=== PATIENT | female | born 1985 | race Two or more races ===

== ENCOUNTER 2018-04-15 16:56 | Emergency (ER) | payer MEDICAID ==
[~2018-04-15] VITALS: Ht 165.1 cm; Wt 60.3 kg
[2018-04-15] MEDS ORDERED: METHIMAZOLE5 MG PO (17:07)
[2018-04-15] MEDS ORDERED: Ketorolac 30mg Inj IV ONE (17:15)
[2018-04-15] MEDS ORDERED: cefTRIAXone 1 GM in NS 55 ML IVPB ONE (17:15)
[2018-04-15] MEDS ORDERED: Lidocaine 2% Visc 15ml soln ORAL ONE (17:15)
[2018-04-15] MEDS ORDERED: Dexamethasone 4mg/ml vial IVP ONE (17:15)
--- NOTE | 2018-04-15 17:24 | Emergency Room Report ---
History of Present Illness General Chief Complaint: Sore Throat Present Illness HPI 32year-old female patient presents ER complaining of sore throat for the past 2 days. Reports that she she saw her primary care doctor yesterday and was diagnosed with strep throat and prescribed azithromycin. Reports began taking medication however pain has intensified today. Reports fever to 100.4 during that time, afebrile currently. Denies cough. Denies chest pain, vomiting, shortness of breath. Allergies: Coded Allergies: No Known Allergies (Unverified , 04/15/18) Patient History Past Medical History: see triage record Last Menstrual Period: 03/31/18 Reviewed Nursing Documentation: PMH: Agreed; PSxH: Agreed Nursing Documentation-PMH Hx Cardiac Problems: No - hyperthyroidism Review of Systems All Other Systems: negative except mentioned in HPI Physical Exam Vital Signs Date Time Temp Pulse Resp B/P (MAP) Pulse Ox O2 Delivery O2 Flow Rate FiO2 04/15/18 17:03 99.5 92 18 119/74 96 Room Air 99.5 Sp02 EP Interpretation: reviewed, normal General Appearance: well appearing, no apparent distress, alert, GCS 15, non- toxic Head: normocephalic, atraumatic Eyes: bilateral eye normal inspection, bilateral eye PERRL ENT: hearing grossly normal, normal pharynx, no angioedema, normal voice, TMs + canals normal, uvula midline, moist mucus membranes, tonsillar swelling, pharyngeal erythema, tonsillar exudate - right tonsil, other - uvula midline, erythematous and swollen, no hot potato voice Neck: full range of motion Respiratory: lungs clear, normal breath sounds, no rhonchi, no respiratory distress, no accessory muscle use, no wheezing, speaking full sentences, other - no stridor Cardiovascular #1: regular rate, rhythm, no edema Musculoskeletal: back normal, digits/nails normal, gait/station normal, normal range of motion, non-tender Neurologic: alert, oriented x3, responsive, motor strength/tone normal, sensory intact Psychiatric: mood/affect normal Skin: no rash Lymphatic: no adenopathy Medical Decision Making PA Attestation Dr. Chase is my supervising Physician whom patient management has been discussed with. Diagnostic Impression: Primary Impression: Tonsillitis ER Course Pt presents to ED c/o sore throat. DDX considered but are not limited to influenza, viral URI, strep throat, pharyngitis, tonsillitis. no uvula deviation, no neck stiffness, no stridor, no tripoding, low suspicion for peritonsillar abscess. VITAL SIGNS are WNL, patient is afebrile ER COURSE: tonsillar exudates, pharyngeal erythema, lymphadenopathy, uvula swelling, no cough, likely pharyngitis. Consult with Dr. Chase, patient seen and evaluated by him, will provide Rocephin antibiotic treatment, viscous lidocaine, and toradol in the ER. Take Tylenol for relief of symptoms. saltwater gargles. Drink plenty of fluids. Symptomatic treatment. Patient reports symptoms improved while in the ER. ER precautions given, during his ER immediately for new or worsening of symptoms including but not limited to difficulty breathing. Followup with PCP or in ER in 2-3 days. DISCHARGE: Rx provided for Augmentin, discontinue Zithromax and use -Rx given for Acetaminophen for fever/pain. At this time pt is stable for d/c to home. Patient resting comfortably, in no acute distress, nontoxic appearing, talking without difficulty Patient to take medications as instructed. Will provide with patient care instructions and any necessary prescriptions. Care plan and follow-up instructions provided. Patient instructed to follow-up with primary care provider in 3 - 5 days. Patient questions asked and answered. ER precautions given. Patient instructed to return to ER immediately for any new or worsening of symptoms including but not limited to fever, SOB, difficulty swallowing. - Please note that this Emergency Department Report was dictated using [employer] tank operator technology software, occasionally this can lead to erroneous entry secondary to interpretation by the dictation equipment. Last Vital Signs Date Time Temp Pulse Resp B/P (MAP) Pulse Ox O2 Delivery O2 Flow Rate FiO2 04/15/18 17:03 99.5 92 18 119/74 96 Room Air 99.5 Status: improved Disposition: HOME, SELF-CARE Condition: Stable Scripts Acetaminophen* (TYLENOL EXTRA STRENGTH*) 500 Mg Tablet 500 MG ORAL Q8H PRN for Prn Headache/Temp > 101, #30 TAB 0 Refills Prov: Alfredo uGerrero P.A. 04/15/18 Amoxicillin/Potassium Clav 875-125* (AUGMENTIN 875-125 TABLET*) 1 Each Tablet 1 TAB ORAL TWICE A DAY for 7 Days, #14 TAB Prov: YolandaAlfredo scott 04/15/18 Patient Instructions: Sore Throat, Tonsillitis Additional Instructions: Followup with primary care provider or return to the ER in 2-3 days for recheck of throat infection. Salt water gargles Take Tylenol for pain and fever symptoms Drink plenty of water. Take medications as directed. discontinue azithromycin. Patient questions asked and answered. ER precautions given, patient instructed to return to ER immediately for any new or worsening of symptoms including but not limited to intractable vomiting, difficulty breathing, inability to eat. Alfredo Guerrero Apr 15, 2018 17:24
[2018-04-15] MEDS ORDERED: AUGMENTIN 875-1 EAC1 ORAL (18:09)
[2018-04-15] MEDS ORDERED: TYLENOL EXTRA500 MG ORAL (18:09)
[2018-04-15] MEDS ORDERED: ZITHROMAX250 MG ORAL (18:37)
[2018-04-15 18:50] VITALS: BP 123/78
== END 2018-04-15 19:00 | disposition home or self-care (01) ==
LOC: EMR 18:56
DX: J03.90 Acute tonsillitis, unspecified (principal)
CPT/HCPCS: 96365; 96375; 99284; J0696; J1100; J1885

== ENCOUNTER 2018-05-22 18:18 | Emergency (ER) | payer MEDICAID ==
[~2018-05-22] VITALS: Ht 165.1 cm; Wt 60.3 kg
[~2018-05-22 18:18] MED LIST: AUGMENTIN 875-1 EAC1 ORAL; METHIMAZOLE5 MG PO; TYLENOL EXTRA500 MG ORAL; ZITHROMAX250 MG ORAL
[2018-05-22 18:33] VITALS: BP 96/60
[2018-05-22] MEDS ORDERED: Lidocaine 2% Visc 15ml soln ORAL ONE (19:00)
[2018-05-22] MEDS ORDERED: Augmentin 875mg Tab ORAL ONE (19:45)
[2018-05-22] MEDS ORDERED: AUGMENTIN 875-1 EAC1 ORAL (19:59)
[2018-05-22] MEDS ORDERED: ACETAMINOPHEN-1 EAC1 ORAL (19:59)
[2018-05-22 20:11] VITALS: BP 98/71
[2018-05-22 20:14] VITALS: BP 98/71
--- NOTE | 2018-05-22 20:40 | Emergency Room Report ---
History of Present Illness General Chief Complaint: Skin Rash/Abscess Source: Patient Present Illness HPI 32-year-old female presents ED complaining of pain and swelling to the left side of face 1 day. Started yesterday. Noticed a bump on her upper gum with surrounding swelling. Pain is sharp, 8 out of 10, nonradiating. Denies fevers or chills. Denies discharge. Denies earache or sore throat. Denies cough. Denies neck stiffness. No other aggravating relieving factors. Denies any other associated symptoms Allergies: Coded Allergies: No Known Allergies (Unverified , 04/15/18) Patient History Past Medical History: none Past Surgical History: none Pertinent Family History: none Social History: Denies: smoking, alcohol use, drug use Last Menstrual Period: 05/19/18 Now: No Immunizations: UTD Reviewed Nursing Documentation: PMH: Agreed; PSxH: Agreed Nursing Documentation-PMH Past Medical History: No History, Except For Hx Cardiac Problems: No - hyperthyroidism Review of Systems All Other Systems: negative except mentioned in HPI Physical Exam Vital Signs Date Time Temp Pulse Resp B/P (MAP) Pulse Ox O2 Delivery O2 Flow Rate FiO2 05/22/18 18:33 99.5 101 20 96/60 99 Room Air Sp02 EP Interpretation: reviewed, normal General Appearance: no apparent distress, alert, GCS 15, non-toxic Head: normocephalic Eyes: bilateral eye normal inspection, bilateral eye PERRL ENT: hearing grossly normal, normal pharynx, no angioedema, normal voice, TMs + canals normal, other - 1cm fluctuance to upper gum with surrounding facial swelling Neck: normal inspection Respiratory: chest non-tender, lungs clear, normal breath sounds, speaking full sentences Cardiovascular #1: regular rate, rhythm, no edema Gastrointestinal: normal inspection Rectal: deferred Genitourinary: no CVA tenderness Musculoskeletal: normal inspection Neurologic: alert, oriented x3, responsive, motor strength/tone normal, sensory intact, speech normal Psychiatric: normal inspection Skin: normal inspection Lymphatic: normal inspection Procedures Incision and Drainage Incision and Drainage : Consent: Verbal Blade Size: 23 gauge needle I & D Procedure: betadine prep; no sterile drapes applied, no sterile dressing applied, no gauze wick placed Wound Location: other - upper gumline Wound's Depth, Shape: other - abscess 1cm Wound Explored: 1cc purulent drainage expressed Anesthesia: other - viscous lidocaine Splint Applied?: No Sling Applied?: No Patient Tolerated: Poor Complications: None Medical Decision Making Diagnostic Impression: Primary Impression: Dental abscess ER Course 32-year-old female presents ED complaining of upper gum/swelling Cracked tooth, dental abscess, cavity Patient placed on stretcher. After initial history, physical exam reveals a young female in no distress. there is an abscess to upper gum with fluctuance and upper facial swelling using 23 gauge needle i was able express about 1cc purulent discharge. patient tolerated without complication given augmentin in ED. safe for discharge with close outpatient followup Diagnosis- dental abscess Stable and discharged to home prescription for augmentin. Instructed to see dentist as a walk-in this week. Return to ED if symptoms recur or worse Last Vital Signs Date Time Temp Pulse Resp B/P (MAP) Pulse Ox O2 Delivery O2 Flow Rate FiO2 05/22/18 20:14 98.9 85 18 98/71 99 Room Air Status: improved Disposition: HOME, SELF-CARE Condition: Stable Scripts Acetaminophen With Codeine (T#3) (TYLENOL #3 TAB*) Y Tab 1 TAB ORAL Q8H PRN for For Pain, #20 TAB Prov: Nolan Heredia MD 05/22/18 Amoxicillin/Potassium Clav 875-125* (AUGMENTIN 875-125 TABLET*) 1 Each Tablet 1 TAB ORAL TWICE A DAY, #14 TAB Prov: Nolan Heredia MD 05/22/18 Patient Instructions: Dental Abscess, [id number] Nolan Heredia MD May 22, 2018 20:40
== END 2018-05-22 20:10 | disposition home or self-care (01) ==
LOC: EMR 19:38
DX: K04.7 Periapical abscess without sinus (principal); K03.81 Cracked tooth; E05.90 Thyrotoxicosis, unspecified without thyrotoxic crisis or storm
CPT/HCPCS: 41800; 99283; Z7502; 10060

== ENCOUNTER 2020-08-28 16:31 | Emergency (ER) | payer MEDICAID ==
[~2020-08-28] VITALS: Ht 165.1 cm; Wt 74.4 kg
[~2020-08-28 16:31] MED LIST changes: +ACETAMINOPHEN-1 EAC1 ORAL
[2020-08-28] MEDS ORDERED: Ketorolac 30mg Inj IV ONE (17:00)
[2020-08-28 17:04] LABS: BILIRUBIN, URINE NEGATIVE (NEGATIVE); GLUCOSE, URINE (UA) NEGATIVE (NEGATIVE); KETONES,URINE NEGATIVE (NEGATIVE); LEUKOCYTE ESTERASE ,URINE 2+ (NEGATIVE); NITRITE,URINE NEGATIVE (NEGATIVE); PH,URINE 6 (4.5-8.0); PROTEIN,URINE 1+ (NEGATIVE); UROBILINOGEN,URINE NORMAL MG/DL (0.0-1.0)
[2020-08-28 17:06] LABS: APPEARANCE,URINE SLIGHTLY CLOUDY; COLOR,URINE YELLOW
[2020-08-28 17:09] LABS: BASOPHILS % (AUTO) 1.3 % (0.0-2.0); EOSINOPHILS % (AUTO) 1.7 % (0.0-3.0); HEMATOCRIT 41.1 % (37.0-47.0); HEMOGLOBIN 13.3 G/DL (12.0-16.0); LYMPHOCYTES % (AUTO) 19.8 % (20.0-45.0); MEAN CORPUSCULAR VOLUME 86 FL (80-99); MONOCYTES % (AUTO) 11.1 % (1.0-10.0); PLATELET COUNT 329 K/UL (150-450); RED BLOOD COUNT 4.78 M/UL (4.20-5.40); RED CELL DISTRIBUTION WIDTH 13.7 % (11.6-14.8); WHITE BLOOD COUNT 6.4 K/UL (4.8-10.8)
[2020-08-28 17:19] LABS: ANION GAP 10 mmol/L (5-15); BLOOD UREA NITROGEN 16 mg/dL (7-18); CALCIUM 9.2 MG/DL (8.5-10.1); CARBON DIOXIDE 25 MMOL/L (21-32); CHLORIDE 103 MMOL/L (98-107); POTASSIUM 3.7 MMOL/L (3.5-5.1); SODIUM 138 MMOL/L (136-145)
[2020-08-28 17:25] LABS: ALANINE AMINOTRANSFERASE 24 U/L (12-78); ALBUMIN 3.8 G/DL (3.4-5.0); ALBUMIN/GLOBULIN RATIO 0.8 (1.0-2.7); ALKALINE PHOSPHATASE 68 U/L (46-116); ASPARTATE AMINO TRANSFERASE 14 U/L (15-37); BILIRUBIN,TOTAL 0.2 MG/DL (0.2-1.0)
--- NOTE | 2020-08-28 17:49 | Emergency Room Report ---
History of Present Illness General Chief Complaint: Abdominal Pain Present Illness HPI 34-year-old female with no signal past medical history here complaining of sudden onset of 1 day of epigastric pain radiating to lower back worsening when laying down. Denies eating spicy greasy food however reports that she drinks a lot of coffee. Denies diarrhea, constipation, nausea vomiting, fever and chills. Complains of acid reflux. Denies UTI symptoms. Has not taken medication for symptom relief. Denies any recent travel. Denies drinking alcohol, tobacco use, drug use. Reports that she occasionally smokes marijuana. Denies . Allergies: Coded Allergies: No Known Allergies (Unverified , 04/15/18) COVID-19 Screening Contact w/high risk pt: No Experienced COVID-19 symptoms?: No COVID-19 Testing performed GRADER MARKER: No Patient History Past Medical History: see triage record Past Surgical History: none Pertinent Family History: none Now: No Immunizations: UTD Reviewed Nursing Documentation: PMH: Agreed; PSxH: Agreed Nursing Documentation-PMH Hx Cardiac Problems: No - hyperthyroidism Review of Systems All Other Systems: negative except mentioned in HPI Physical Exam Vital Signs Date Time Temp Pulse Resp B/P (MAP) Pulse Ox O2 Delivery O2 Flow Rate FiO2 08/28/20 16:37 98.8 113 18 119/69 (86) 96 Room Air Sp02 EP Interpretation: reviewed, normal General Appearance: no apparent distress, alert, GCS 15, non-toxic Head: normocephalic, atraumatic Eyes: bilateral eye normal inspection, bilateral eye PERRL ENT: hearing grossly normal, normal pharynx, no angioedema, normal voice Neck: supple Respiratory: lungs clear, no rhonchi, no retraction Cardiovascular #1: no edema, no gallop Gastrointestinal: normal bowel sounds, non tender, soft, no mass, no organomegaly, no peritonitis, no bruit, no guarding Rectal: deferred Genitourinary: no CVA tenderness Musculoskeletal: back normal Neurologic: alert, motor strength/tone normal, oriented x3, sensory intact, responsive, speech normal Psychiatric: judgement/insight normal, memory normal, mood/affect normal, no suicidal/homicidal ideation Skin: no rash Lymphatic: no adenopathy Medical Decision Making PA Attestation All diagnoses and treatment plans were reviewed and discussed with my supervising physician Dr. Saenz Diagnostic Impression: Primary Impression: Gastritis Additional Impression: UTI (urinary tract infection) ER Course 34-year-old female with no signal past medical history here complaining of sudden onset of 1 day of epigastric pain radiating to lower back worsening when laying down. Denies eating spicy greasy food however reports that she drinks a lot of coffee. Denies diarrhea, constipation, nausea vomiting, fever and chills. Complains of acid reflux. Denies UTI symptoms. Has not taken medication for symptom relief. Denies any recent travel. Denies drinking alcohol, tobacco use, drug use. Reports that she occasionally smokes marijuana. Denies . Ddx considered but are not limited to: Cholelithiasis, cholecystitis, gastritis, gastric ulcer, pancreatitis Vital signs: are WNL, pt. is afebrile H&PE are most consistent with: Gastritis, incidental finding of UTI ORDERS: CBC, CMP, UA, tox screen, lipase, urine test, right upper quadrant abdominal ultrasound, Pepcid, Zofran, dicyclomine, Covid ED INTERVENTIONS: Toradol, NS bolus, Pepcid DISCHARGE: At this time pt. is stable for d/c to home. Will provide printed patient care instructions, and any necessary prescriptions. Care plan and follow up instructions have been discussed with the patient prior to discharge. Patient take medication as directed, avoid drinking coffee, if worsening symptom s return to the emergency room. Also follow-up with slitter and cutter operator if symptoms persist for further evaluation of possible gastric ulcer due to pain radiation to the back CT/MRI/US Diagnostic Results CT/MRI/US Diagnostic Results : Imaging Test Ordered: Right upper quadrant abdominal ultrasound Impression COMPARISON: No relevant prior studies available. FINDINGS: Liver: Unremarkable. Gallbladder: No cholelithiasis or evidence of acute cholecystitis. Common bile duct: CBD 4 mm. Pancreas: Unremarkable as visualized. Kidneys: No hydronephrosis. Spleen: Unremarkable. Aorta: Unremarkable as visualized. Inferior vena cava: Unremarkable as visualized. IMPRESSION: No cholelithiasis or evidence of acute cholecystitis. Last Vital Signs Date Time Temp Pulse Resp B/P (MAP) Pulse Ox O2 Delivery O2 Flow Rate FiO2 08/28/20 17:34 Room Air 08/28/20 16:37 98.8 113 18 119/69 (86) 96 Disposition: HOME, SELF-CARE Condition: Stable Scripts Nitrofurantoin Monohyd/M-Cryst* (MACROBID 100 MG*) 100 Mg Capsule 100 MG ORAL EVERY 12 HOURS for 7 Days, #14 CAP Prov: Al Palomares 08/28/20 Ondansetron (Zofran) 4 Mg Tablet 4 MG ORAL Q6H PRN for Nausea & Vomiting, #10 TAB Prov: Al Palomares 08/28/20 Dicyclomine Hcl* (DICYCLOMINE HCL*) 10 Mg Capsule 10 MG ORAL TID, #20 CAP Prov: Al Palomares 08/28/20 Famotidine* (Pepcid 20mg tablet*) 20 Mg Tablet 20 MG ORAL DAILY for Gerd, #30 TAB 0 Refills Prov: Al Palomares 08/28/20 Referrals: [facility],REFERR[facility] (PCP) Patient Instructions: Gastritis, Adult, Urinary Tract Infection, [id number] Additional Instructions: Take medication as directed, follow-up with primary care provider, avoid eating spicy greasy food, referral to slitter and cutter operator may be needed upon request of your primary doctor, if worsening symptoms return to the emergency room Al Palomares Aug 28, 2020 17:49
[2020-08-28] MEDS ORDERED: ZOFRAN4 M1 ORAL (17:52)
[2020-08-28] MEDS ORDERED: FAMOTIDINE20 MG ORAL (17:52)
[2020-08-28] MEDS ORDERED: DICYCLOMINE HCL10 MG ORAL (17:52)
[2020-08-28] MEDS ORDERED: NITROFURANTOIN100 M2 ORAL (17:56)
--- NOTE | 2020-08-28 18:02 | NUR ---
Patient reported to ER with abdominal pain. No radiation. No N/V. independently ambulatory. Will be further assessed by
[2020-08-28 18:10] VITALS: BP 122/62
--- NOTE | 2020-08-28 18:11 | Diagnostic Imaging Report ---
EXAM: US Abdomen Complete CLINICAL HISTORY: PAIN TECHNIQUE: Real-time ultrasound of the abdomen with image documentation. COMPARISON: No relevant prior studies available. FINDINGS: Liver: Unremarkable. Gallbladder: No cholelithiasis or evidence of acute cholecystitis. Common bile duct: CBD 4 mm. Pancreas: Unremarkable as visualized. Kidneys: No hydronephrosis. Spleen: Unremarkable. Aorta: Unremarkable as visualized. Inferior vena cava: Unremarkable as visualized. IMPRESSION: No cholelithiasis or evidence of acute cholecystitis.
== END 2020-08-28 18:11 | disposition home or self-care (01) ==
LOC: EMR 17:18
DX: K29.70 Gastritis, unspecified, without bleeding (principal); N39.0 Urinary tract infection, site not specified; F12.90 Cannabis use, unspecified, uncomplicated; E05.90 Thyrotoxicosis, unspecified without thyrotoxic crisis or storm
CPT/HCPCS: 36415; 76700; 80053; 80307; 81003; 81025; 83690; 85025; 87086; 96361; 96374; 96375; J1885; J7030; S0028; Z7502; 99284